=== PATIENT | male | born 1970 | race Hispanic/Latino ===

== ENCOUNTER → 2019-10-30 | Day surgery (SDC) | payer SELFPAY ==
[2019-10-27 10:34] LABS: BASOPHILS # (AUTO) 0.1 (0.0-0.1); BASOPHILS % 0.6 % (0.0-1.0); EOSINOPHILS # (AUTO) 0.9 (0.0-0.4); HEMATOCRIT 49.3 % (38.2-49.6); HEMOGLOBIN 16.6 g/dL (14.0-18.0); LYMPHOCYTES # (AUTO) 2.6 (1.0-3.2); LYMPHOCYTES % 25.9 % (18.0-39.1); MEAN CORPUSCULAR HEMOGLOBIN 30.3 pg (28-32); MEAN CORPUSCULAR HGB CONC 33.7 g/dL (31-35); MEAN CORPUSCULAR VOLUME 90.1 fL (81-99); NEUTROPHILS # (AUTO) 5.4 (2.1-6.9); NEUTROPHILS % 54.1 % (38.7-80.0); PLATELET COUNT 327 x10e3/uL (140-360); RED BLOOD COUNT 5.47 x10e6/uL (4.3-5.7); RED CELL DISTRIBUTION WIDTH 12.7 % (11.7-14.4)
[2019-10-27 10:55] LABS: ANION GAP 13.5 mmol/L (8-16); BLOOD UREA NITROGEN 5 mg/dL (7-26); BUN/CREATININE RATIO 6 (6-25); CALCIUM 10.8 mg/dL (8.4-10.2); CARBON DIOXIDE 29 mmol/L (22-29); CHLORIDE 99 mmol/L (98-107); CREATININE, SERUM 0.89 mg/dL (0.72-1.25); EST GLOMERULAR FILTRATION RATE > 60 ML/MIN (60-); GLUCOSE 97 mg/dL (74-118); POTASSIUM 3.5 mmol/L (3.5-5.1); SODIUM 138 mmol/L (136-145)
[~2019-10-30] MED LIST: ACETAMINOPHEN/CODEINE 300MG - 30MG TAB ONE; BUPIVACAINE 0.5%/EPI 30 ML SDV INJ ONE; CEFAZOLIN SOD 1 GM VIAL ONE; CEFAZOLIN SOD 1 GM/NS 50ML 50 ML IV ONE; DEXAMETHASONE SOD PHOS INJ 4 MG/ML VIAL ONE; FENTANYL CITRATE/PF 100MCG/2 ML INJ ONE; GLYCOPYRROLATE INJ 0.2 MG/ML VIAL ONE; HYDRALAZINE HCL 20 MG/ML VIAL ONE; HYDROCHLOROTHIA25 MG PO; HYDROGEN PEROXIDE 120 ML BTL ONE; KETOROLAC TROMETHAMINE 30 MG/ML VIAL ONE; LIDOCAINE HCL 2% LOCAL INJ 5 ML SDV VIAL INJ ONE; MIDAZOLAM HCL 2 MG/2 ML VIAL ONE; NEOSTIGMINE 1 MG/ML 10ML VIAL ONE; ONDANSETRON HCL INJ 2MG/ML 2ML 2 MG/ML VIAL ONE; PROPOFOL IV EMULSION 10 MG/ML 20 ML VIAL ONE; ROCURONIUM BROMIDE 10 MG/ML 5ML VIAL IV ONE; SEVOFLURANE INHAL SOLN 250 ML PEN BTL ONE; SUCCINYLCHOLINE CHLORIDE 20 MG/ML 10ML VIAL ONE; VANCOMYCIN HCL 1 GM VIAL ONE
--- NOTE | 2019-10-30 10:44 | Operative Report ---
DATE OF PROCEDURE: 10/30/2019 SURGEON: Owen Saunders MD PREOPERATIVE DIAGNOSES: 1. Morbid obesity. 2. Left inguinal hernia, incarcerated. POSTOPERATIVE DIAGNOSES: 1. Morbid obesity. 2. Left inguinal hernia, incarcerated. PROCEDURE PERFORMED: Repair of left inguinal hernia. PARTS DEPARTMENT SUPERVISOR: ELOISE Montanez. ESTIMATED BLOOD LOSS: Minimal. DRAINS: None. COMPLICATIONS: None. INDICATION AND FINDINGS: Morbidly obese male complains of a bulge of the left groin noted several weeks ago. At this time, the patient has no pain. INTRAOPERATIVE FINDINGS: The patient had a left inguinal hernia which consisted of a global weakness of the floor and a lipoma of the cord. There was no bowel in the scrotum. An Ultra-Pro hernia system, oval type was deployed. DESCRIPTION OF PROCEDURE: With the patient lying on the operative table in the supine position after administration of general anesthesia, he was prepped and draped for repair of left inguinal hernia. Preemptive anesthesia was given with 0.25% Marcaine with epinephrine as an ilioinguinal nerve block and an incisional nerve block. A transverse groin incision was made deepened through the skin, subcutaneous tissue, Yamil fascia until the external oblique aponeurosis was identified. This was incised along the course of its fibers transecting the external inguinal ring. Medial and lateral leaves were developed. The cord mobilized at the level of the pubic tubercle and retracted away from the operative field by June drain. The cremaster layer was incised, lipoma cord was highly ligated using 0 silk. Then, the preperitoneal space was entered after incision of the transversalis fascia and then we created a pocket to accommodate the Ultrapro Hernia System, oval type. The mesh was deployed with the underlay part of the mesh over the direct space and the overlay part of the mesh over the inguinal canal floor. A slit was made to accommodate the cord and then the mesh was secured to the local tissues using a series of interrupted 2-0 Ethibond sutures. Bleeding points were cauterized as they were encountered. After we completed the repair, we infiltrated the operative field again with 0.25% Marcaine with epinephrine and then we closed the wound in layers using a running 0 Vicryl for the external oblique aponeurosis. The subcutaneous tissues were closed in two planes due to the large size of the patient using 0 chromic and the skin was closed using 2-0 mattress silk. Sterile dressing was applied. The patient tolerated the procedure well, taken to recovery room in stable condition. At the end of the procedure, I went to the waiting area, could not find his . I will try again to give her more instructions. MD SCARLET Coleman/SURI /[id number]
[2019-10-30 12:30] VITALS: BP 136/77
== END | disposition home or self-care (01) ==
LOC: OR 05:55
PROVIDERS: ATTEND Surgery
DX: K40.30 Unilateral inguinal hernia, with obstruction, without gangrene, not specified as recurrent (principal); E66.01 Morbid (severe) obesity due to excess calories; D17.6 Benign lipomatous neoplasm of spermatic cord; I10 Essential (primary) hypertension; E78.5 Hyperlipidemia, unspecified; K21.9 Gastro-esophageal reflux disease without esophagitis; R06.83 Snoring; Z01.810 Encounter for preprocedural cardiovascular examination; Z01.812 Encounter for preprocedural laboratory examination; Z11.59 Encounter for screening for other viral diseases; Z68.42 Body mass index [BMI] 45.0-49.9, adult
CPT/HCPCS: 36415; 49507; 80048; 85025; 93005; C1781; J0330; J0360; J0690 ×2; J1100; J1885; J2001; J2405; J2704; J2710; J3370; U0002; J2250; J3010